=== PATIENT | male | born 1975 | race Caucasian/White ===

== ENCOUNTER 2024-04-17 00:59 | Emergency (ER) | payer SELFPAY ==
[~2024-04-17] VITALS: Ht 177.8 cm; Wt 86.2 kg
[2024-04-17 01:04] VITALS: BP_SYST 160; PULSE 107; RESP 18; TEMP 98.7; O2SAT 95
[2024-04-17 01:55] VITALS: BP_SYST 160; PULSE 107; RESP 18; TEMP 98.7; O2SAT 95
== END 2024-04-17 01:56 ==
LOC: SED 00:59
DX: S09.8XXA Other specified injuries of head, initial encounter (principal); Y04.0XXA Assault by unarmed brawl or fight, initial encounter; Y93.89 Activity, other specified; Y92.89 Other specified places as the place of occurrence of the external cause; Y99.8 Other external cause status
CPT/HCPCS: 70486; 99284